=== PATIENT | male | born 1970 | race Caucasian/White ===

== ENCOUNTER 2025-06-26 21:42 | Emergency (ER) | payer OTHER, SELFPAY ==
--- NOTE | 2025-06-26 | ECG_ITS ---
Test Reason : FALL Blood Pressure : */* mmHG Vent. Rate : 74 BPM Atrial Rate : 74 BPM P-R Int : 132 ms QRS Dur : 100 ms QT Int : 454 ms P-R-T Axes : 66 -44 48 degrees QTcB Int : 503 ms Normal sinus rhythm Left axis deviation Prolonged QT Abnormal ECG No previous ECGs available Referred By: Generic ED Physician Electronically Signed By: GERALD CASSIDY MD
--- NOTE | ~2025-06-26 | CT_ITS ---
CLINICAL HISTORY: fall with head strike --- Additional Notes or Special Instructions: hx hemorrhagic cva recently CT head without contrast Comparison: None provided Findings: There is generalized cerebral and cerebellar atrophy. This is greater than expected for a patient of this age. The size and shape of the ventricular system is within normal limits for this degree of atrophy. Hpos-en-nrlersnq areas of low-attenuation are identified within the periventricular and deep white matter. Yang-white differentiation is preserved. No midline shift or mass effect. No intracranial hemorrhage. No calvarial fractures. Mild soft tissue swelling of the right posterior parietal scalp. IMPRESSION: 1. Mild right posterior parietal scalp contusion without fracture or intracranial hemorrhage. 2. Atrophy greater than expected for age. This document has been electronically signed by: Beto Whitney MD on 06/27/2025 01:16:00
--- NOTE | ~2025-06-26 | CT_ITS ---
CLINICAL HISTORY: fall with head strike --- Additional Notes or Special Instructions: hx hemorrhagic cva recently CT cervical spine without contrast Comparison: None provided Findings: Bony alignment of the cervical vertebral bodies is anatomic. No acute fracture. No prevertebral soft tissue swelling. Aejq-ia-hnnextcd degenerative disc disease at C5-6. Bony central canal is patent. No enlarged lymph nodes. Upper airway is patent. No apical infiltrate or apical pneumothorax. Small left pleural effusion versus mild posterior pleural thickening. IMPRESSION: No acute fracture. This document has been electronically signed by: Beto Whitney MD on 06/27/2025 01:15:38
[2025-06-26 21:49] VITALS: BP 114/81; PULSE 83; O2SAT 99; BMI 20.3
[2025-06-26 22:01] VITALS: BP 108/71; PULSE 80; RESP 16; O2SAT 100
[2025-06-26 23:30] LABS: Hematocrit 33.4 % (42.0-52.0); Hemoglobin 11.9 g/dl (14.0-18.0); Imm Gran Abs Auto 0.05 X10*3/uL (0.00-0.03); Imm Gran Pct Auto 0.8 % (0.0-0.4); Lymphocytes Absolute Auto 2.3 X10*3/uL (1.2-4.9); Mean Corpuscular HGB Conc 35.6 g/dl (31.0-36.0); Mean Corpuscular Hemoglobin 42.3 pg (27.0-33.0); NRBC Abs Auto 0.000 X10*3/uL (0.0-0.012); NRBC Pct Auto 0.0 /100WBC (0.0-0.2); PLT CLUMP 1; Red Blood Count 2.81 X10*6/uL (4.60-5.80); SCAN SMEAR FLAG 1
[2025-06-26 23:33] LABS: Anion Gap 19 (12-20); Blood Urea Nitrogen 5 mg/dL (9-16); Calcium 8.0 mg/dL (8.4-10.2); Carbon Dioxide 21 mmol/L (22-29); Chloride 100 mmol/L (96-108); Creatinine Clr Calc Pharmacy 140.5; Estimated Glomerular Filt Rate > 60; Potassium 2.6 mmol/L (3.3-5.1); Sodium 137 mmol/L (135-145)
[2025-06-26 23:48] LABS: Magnesium 2.1 mg/dL (1.6-2.6)
[2025-06-26 23:52] LABS: Mean Corpuscular Volume 118.9 fL (80.0-98.0); Platelet Count 116 X10*3/uL (160-400); White Blood Count 6.5 X10*3/uL (4.8-10.8)
[2025-06-26 23:53] LABS: MANUAL DIFF FLAG SCAN
--- NOTE | 2025-06-27 00:51 | ED_ITS ---
HPI - Alcohol General Chief Complaint: ETOH/Substance Use Stated Complaint: Fall/ETOH C-Collar Time Seen by Provider: 06/27/25 00:44 Source: patient and EMS Mode of arrival: ambulatory Limitations: no limitations History of Present Illness ED Provider: HPI narrative: 54-year-old male with a history of alcohol use disorder states was walking his dog, and dog pulled him he lost his balance and fell onto concrete wall, states that last month he was at [facility] after multiple falls while he was intoxicated he had small brain bleed as he states, he states his tetanus is up-to-date, and he otherwise has no other complaints denies chest pain palpitations nausea or vomiting. He states I feel like a million bucks Related Data Previous Rx's ?Medication ?Instructions ?Recorded potassium chloride 20 mEq 20 meq PO BID 10 days #20 ta bs 06/27/25 tablet,extended release (K-Tab) vitamin B complex 1 tab PO DAILY #30 tabs 06/06 01/27 Allergies Allergy/AdvReac Type Severity Reaction Status Date / Time No Known Allergies Allergy Verified 06/26/25 21:53 Review of Systems 2 Constitutional: Constitutional: Reports as per [facility] Social History Social History Alcohol intake: current Alcohol intake frequency: 0-2 drinks per day Smoked in Last 30 Days: Yes Use of substances other than those prescribed or required for medical reasons: No Physical Exam ED Vital Signs: Vital Signs - 24 hr 06/26/25 22:01 Pulse Rate 80 Respiratory Rate 16 Blood Pressure 108/71 Pulse Oximetry 100 Oxygen Delivery Method Room Air BMI result Body Mass Index 20.3 Const Other: * Gen: ?Cachectic, looks older than stated age * HEENT: No scleral icterus * Neck: Cervical collar in place * CV: RRR, no obvious murmurs appreciated * Resp: ?No wheezing rales rhonchi no stridor moving air well * Abd: ?Bowel sounds are present, no tenderness no rebound no rigidity * MSK: FROM, strength 5/5 all extremities * Skin: Superficial abrasions and bruising from prior injuries and D2 foreskin quality, acute abrasion to the top of the scalp, to his mid back and to his right elbow, no lacerations requiring repair * Neuro: ?Alert and oriented x3 with alcohol on breath, moving upper and lower extremities symmetrically, no obvious facial asymmetry noted Medical Decision Making Medical Decision Making MDM Narrative: Patient is presenting with falling this is a mechanical fall in the setting of alcohol intoxication, she does have alcohol on breath but he is fairly coherent, and clearly does not want to be in the emergency department, with that said all his blood work revealed hypokalemia without EKG changes such as you waves to necessitate emergent replacement, we will replace with oral meds that have excellent bed availability, he also has microcytic anemia likely nutritional, we will start him on vitamin you complexes, if CT of the head and neck is unremarkable, anticipating discharge in the care of a family member he states he is able to call. Differential Diagnosis Differential Diagnoses: The differential diagnosis associated with the presentation includes (Head injury, neck injury, anemia, hypomagnesemia, hypokalemia, dehydration, failure to thrive) Admission/Observation Consideration of admission/observation: Escalation of care including admission/observation considered 2022 Emergency Medicine Coding Guide from [email or web address] on 06/27/2025 All calculations should be rechecked by clinician prior to use RESULT SUMMARY: 5 Estimated Level of Service Problems: High (5) Risk: High (5) Data: Extensive (5) NARRATIVE MDM: This patient's problem complexity is High as patient: may have an acute or chronic illness/injury posing a threat to life or body function. This patient's risk is High due to: overall presentation requiring evaluation for a potentially High-risk process. This patient's data complexity is Extensive due to: -multiple tests ordered/reviewed -external notes reviewed -independent interpretation of imaging or EKG INPUTS: Number and Complexity ?> 2 = 5: illness/injury w/life or body threat (b) Risk level ?> 4 = High Tests ordered ?> 3 = >= Tests results reviewed (excluding labs) ?> 2 = 2 Prior external notes reviewed ?> 1 = 1 Assessment requiring and independent historian ?> 0 = No Independent interpretation of tests ?> 1 = Yes Discussed management/test interpretation w/external professional ?> 0 = No Lab Data [facility] Lab Attestation statement: I reviewed the patient's lab results. 06/26/25 22:57 06/26/25 22:57 Labs: Lab Results 06/26/25 Range/Units 22:57 WBC 6.5 (4.8-10.8) X10*3/uL RBC 2.81 L (4.60-5.80) X10*6/uL Hgb 11.9 L (14.0-18.0) g/dl Hct 33.4 L (42.0-52.0) % MCV 118.9 H (80.0-98.0) fL MCH 42.3 H (27.0-33.0) pg MCHC 35.6 (31.0-36.0) g/dl RDW 16.5 H (11.0-16.0) % Plt Count 116 L (160-400) X10*3/uL MPV 11.1 (9.4-12.4) fL Immature Gran % (Auto) 0.8 H (0.0-0.4) % Neut % (Auto) 50.5 (45-73) % Lymph % (Auto) 35.6 (20-40) % [place] % (Auto) 11.3 H (2-11) % Eos % (Auto) 1.2 (0-4) % Baso % (Auto) 0.6 (0-2) % Lymph # (Auto) 2.3 (1.2-4.9) X10*3/uL [place] # (Auto) 0.7 (0.1-1.2) X10*3/uL Eos # (Auto) 0.1 (0.0-0.4) X10*3/uL Baso # (Auto) 0.0 (0.0-0.2) X10*3/uL Abs Immat Gran (auto) 0.05 H (0.00-0.03) X10*3/uL Absolute Neuts (auto) 3.3 (2.0-8.3) x10*3/uL Absolute Nucleated RBC 0.000 (0.0-0.012) X10*3/uL Nucleated RBC % (auto) 0.0 (0.0-0.2) /100WBC Smear Tech's Comments VERIFIED Sodium 137 (135-145) mmol/L Potassium 2.6 L* (3.3-5.1) mmol/L Chloride 100 (96-108) mmol/L Carbon Dioxide 21 L (22-29) mmol/L Anion Gap 19 (12-20) BUN 5 L (9-16) mg/dL Creatinine 0.52 (0.5-1.4) mg/dL Estim Creat Clear Calc 140.5 Estimated GFR > 60 Random Glucose 81 (60-115) mg/dL Calcium 8.0 L (8.4-10.2) mg/dL Magnesium 2.1 (1.6-2.6) mg/dL Ethyl Alcohol 224 mg/dL Independent Interpretation I performed an independent interpretation of an: EKG (74 beats per minute, there was no T-wave flattening, or ST segment depression or prominent U-waves, slightly prolonged QTC at 503) Medications Administered Discontinued Medications Generic Name Dose Route Start Last Admin Trade Name Freq PRN Reason Stop Dose Admin Potassium Chloride 40 meq 06/27/25 00:50 06/27/25 00:56 Potassium Chloride Packet 20 Meq Packet PO 06/27/25 00:51 40 meq ONCE ONE Administration Potassium Chloride 10 meq 06/27/25 00:54 06/27/25 00:58 Potassium Chloride Er 10 Meq Tablet.Er PO 06/27/25 00:55 10 meq ONCE ONE Administration Discharge Plan Discharge Clinical Impression: Alcoholic intoxication, Abrasion of scalp, Abrasion of elbow, Acute hypokalemia, Anemia, macrocytic, nutritional Patient Disposition: Home, Self-Care Instructions: Hypokalemia (ED), Abuse of Alcohol (DC) Additional Instructions: Evaluated after a fall in the setting of alcohol use, you have had multiple falls in the past, he has sustained abrasions to your back, top of the head, your right elbow, I recommend detox as you alcohol use is impact in your health, I am also recommending vitamin-B complex for your anemia associated with poor diet Prescriptions: New potassium chloride [K-Tab] 20 mEq tablet extended release 20 meq PO BID 10 Days Qty: 20 0RF vitamin B complex Tablet 1 tab PO DAILY Qty: 30 0RF
[2025-06-27] MEDS: Potassium Chloride Packet 20 MEQ PACKET 40 MEQ PO (00:56)
[2025-06-27] MEDS: Potassium Chloride ER 10 MEQ TABLET.ER PO (00:58)
[2025-06-27 01:37] VITALS: BP 101/72; PULSE 83; RESP 16; TEMP 36.7; O2SAT 97
[2025-06-27 01:56] VITALS: BP 101/72; PULSE 83; RESP 16; TEMP 36.7; O2SAT 97
== END 2025-06-27 01:56 | disposition home or self-care (01) ==
LOC: HO.ED 06-27 01:48
PROVIDERS: Emergency Provider Emergency Medicine
DX: S00.01XA Abrasion of scalp, initial encounter (principal); S50.311A Abrasion of right elbow, initial encounter; E87.6 Hypokalemia; D64.9 Anemia, unspecified; F10.129 Alcohol abuse with intoxication, unspecified; R94.31 Abnormal electrocardiogram [ECG] [EKG]; Y93.K1 Activity, walking an animal; Y93.9 Activity, unspecified; Y92.480 Sidewalk as the place of occurrence of the external cause; Y99.8 Other external cause status; Y90.7 Blood alcohol level of 200-239 mg/100 ml; Z51.81 Encounter for therapeutic drug level monitoring; Z79.899 Other long term (current) drug therapy
CPT/HCPCS: 36415; 70450; 72125; 80048; 80307; 83735; 85025; 93005; 99284

== ENCOUNTER → 2025-06-26 22:34 | Outpatient (BNV) | payer OTHER, SELFPAY | PROVIDERS: Emergency Provider Emergency Medicine; Visit Provider Internal Medicine Cardiovascular Disease | DX: R94.31 Abnormal electrocardiogram [ECG] [EKG] (principal); W19.XXXA Unspecified fall, initial encounter | CPT/HCPCS: 93010 ==

== ENCOUNTER → 2025-06-27 23:17 | Outpatient (BNV) | payer OTHER, SELFPAY | PROVIDERS: Emergency Provider Emergency Medicine; Visit Provider Radiology Diagnostic Radiology | DX: S09.90XA Unspecified injury of head, initial encounter (principal); W19.XXXA Unspecified fall, initial encounter | CPT/HCPCS: 70450; 72125 ==

== ENCOUNTER 2025-09-22 03:29 | Emergency (ER) | payer OTHER, SELFPAY ==
--- NOTE | ~2025-09-22 | CT_ITS ---
CLINICAL HISTORY: Fall; Head Strike; LOC CT of the head without intravenous contrast Comparison: CT/SR - CT HEAD/BRAIN WO IV CON - 06/27/25 00:17 EDT Findings: The ventricles and sulci are prominent, consistent with generalized cerebral parenchymal volume loss. The ventricles are symmetric and the basilar cisterns are intact. Mild periventricular, deep and subcortical white matter hypodensities are nonspecific but statistically reflect the sequela of chronic small vessel ischemic change. No intracranial hemorrhage, extra-axial fluid collection, midline shift or mass-effect is evident. No evidence of acute large vessel or territorial ischemia. Brainstem and cerebellum unremarkable. Vascular calcifications indicate intracranial atherosclerosis. The imaged portion of the paranasal sinuses demonstrated bilateral maxillary sinusitis. No mastoid effusions are demonstrated. The orbital contents are unremarkable. Calvarium is intact. Impression: 1. No CT evidence of acute intracranial abnormality. 2. Cerebral volume loss, intracranial atherosclerotic disease and mild sequela of chronic small vessel ischemic disease. This document has been electronically signed by: Kishor Villarreal MD on 09/22/2025 05:25:49
--- NOTE | ~2025-09-22 | CT_ITS ---
CLINICAL HISTORY: Fall; Head Stike CT cervical spine without intravenous contrast Comparison: CT/SR - CT CERVICAL SPINE WO IV CON - 06/27/25 00:17 EDT Findings: Craniocervical junction: No occipital condylar fractures. No evidence of atlantooccipital dissociation. The anterior and posterior arch and lateral masses of C1 are intact. Odontoid and atlanto-dental interval intact. The pars interarticularis of C2 is intact. There is normal vertebral body heights with no evidence of compression fracture. There is normal cervical alignment. No locked or perched facets. No spinous process fractures. Lordotic curvature is preserved. The retropharyngeal soft tissues are not widened. Segmental analysis as below (MR is more accurate in the evaluation of disc herniation and central canal pathology): C2-C3: No herniation or stenosis. C3-C4: No herniation or stenosis. C4-C5: No herniation or stenosis. C5-C6: No herniation or stenosis. C6-C7: No herniation or stenosis. C7-T1: No herniation or stenosis. The bones are without evidence of lytic or blastic lesion. Lung apices are unremarkable. Impression: 1. Negative CT cervical spine for acute process. This document has been electronically signed by: Kishor Villarreal MD on 09/22/2025 05:32:04
[2025-09-22 03:33] VITALS: BP 122/75; BP 158/92; PULSE 81; PULSE 84; RESP 20; TEMP 36.4; O2SAT 100; O2SAT 99; BMI 23.6
--- NOTE | 2025-09-22 04:43 | ED_ITS ---
HPI - Fall General Chief Complaint: Fall Stated Complaint: unwitnessed fall, LOC, LAC on head Time Seen by Provider: 09/22/25 04:47 Source: patient Mode of arrival: ambulatory Limitations: no limitations History of Present Illness ED Provider: Tiago DOWNEY HPI Narrative: The patient is a 55-year-old male presenting to the ED via EMS after he suffered a mechanical fall outside. The patient admits to daily alcohol use, including this evening. Patient reports he was using his walker outside when his hand slipped off and he fell forward striking the right parietal region on unknown object resulting in a laceration. The patient does not take blood thinners, patient denies loss of consciousness at the time of the injury, however EMS reports hotel staff found the patient unconscious and activated EMS. In the ED patient is verbally oppositional but ultimately able to be redirected. Related Data Previous Rx's ?Medication ?Instructions ?Recorded potassium chloride 20 mEq 20 meq PO BID 10 days #20 ta bs 06/27/25 tablet,extended release (K-Tab) vitamin B complex 1 tab PO DAILY #30 tabs 06/06 01/27 Allergies Allergy/AdvReac Type Severity Reaction Status Date / Time No Known Allergies Allergy Verified 09/22/25 03:38 Review of Systems 2 Review of Systems: Yes all other systems are reviewed and are negative PMFSH Social History Social History Alcohol intake: current Alcohol intake frequency: 3 or more drinks per day Alcohol type: beer and hard liquor Smoked in Last 30 Days: Yes Use of substances other than those prescribed or required for medical reasons: No Advance Directives: No Advance Directives Information Provided: Yes Physical Exam 2 Vital Signs: Vital Signs: Last Vital Signs Temp 98.5 F 09/22/25 06:27 Pulse 83 09/22/25 06:27 Resp 18 09/22/25 06:27 BP 99/78 09/22/25 06:27 Pulse Ox 94 09/22/25 06:27 O2 Del Method Room Air 09/22/25 06:27 BMI result Body Mass Index 23.6 CONSTITUTIONAL: The patient appears clinically intoxicated, odor of EtOH metabolites on breath, otherwise non-toxic, well nourished and in no acute distress. Vital signs as documented. HEAD: There is a 3 cm linear laceration noted to the right parietal area. Head is otherwise Atraumatic, normocephalic. EYES: EOMs grossly intact, pupils equal, conjunctiva clear, no exudate. ENT: Nares patent, no discharge. Airway patent, no audible stridor, visible mucosa is pink and moist without noted lesions. NECK: Trachea is midline, no obvious masses or gross abnormalities. CHEST: Symmetric movement, normal appearance. LUNGS: LS present and CTAB, no w/r/r. Non-labored work of breathing. CARDIAC: Regular Rhythm, S1/S2 appreciated, no murmurs, rubs or gallops. ABDOMEN: Abdomen soft and non-tender x4 quadrants, no palpable masses or organomegaly. : Deferred. EXTREMITIES: Normal tone, moves all extremities spontaneously without reported pain. No obvious acute injury or deformity noted. NEURO: Alert and oriented x3, CN II-XII appear grossly intact. Cerebellar Functioning grossly intact. No obvious sensory or motor deficits. Speech clear and appropriate. PSYCH: Oppositional affect, appropriate eye contact, fluid speech, with appropriate response to questioning. No reported suicidality or homicidality. SKIN: Warm, dry, color appropriate, normal turgor. No rashes noted. Course Course Course Narrative: 11:32 AM 09/22/2025 (DUC CORONA): Physician observation ended, he is clinically sober, he has a steady gait, he declines all SUDE eval and wants to go home Medications Administered Discontinued Medications Generic Name Dose Route Start Last Admin Trade Name Freq PRN Reason Stop Dose Admin Sodium Chloride 1,000 mls @ 999 mls/hr 09/22/25 05:15 09/22/25 05:24 Ns IV 09/22/25 06:15 Not Given .Q1H1M STEVE Lidocaine HCl 5 ml 09/22/25 05:27 09/22/25 05:29 Lidocaine Hcl 1 % Mpf 5 Ml Vial INFILTRATI 09/22/25 05:28 5 ml ONCE ONE Administration Lidocaine/Epinephrine 5 ml 09/22/25 05:08 09/22/25 05:25 Lidocaine Hcl 1%/Epi 1:100,000 20 Ml Vial INFILTRATI 09/22/25 05:09 Not Given ONCE ONE Procedures Laceration Laceration 1: Site: scalp Side (If applicable): right Size (cm): 3 Description: linear and clean Depth: simple, single layer Local Anesthetic: lidocaine 1% Amount of anesthesia used (mL): 5 Pre-repair: wound explored, irrigated extensively and deep structures intact Skin layer closed with: thony Number of closing items:: 6 Technique: thony Medical Decision Making Medical Decision Making [facility] Narrative: 5:09 AM 09/22/2025 (Raine DOWNEY): The patient is a 55-year-old male presenting to the ED via EMS after he suffered a mechanical fall outside. The patient admits to daily alcohol use, including this evening. Patient reports he was using his walker outside when his hand slipped off and he fell forward striking the right parietal region on unknown object resulting in a laceration. The patient does not take blood thinners, patient denies loss of consciousness at the time of the injury, however EMS reports hotel staff found the patient unconscious and activated EMS. In the ED patient is verbally oppositional but ultimately able to be redirected. The patient appears clinically intoxicated, with a odor of EtOH metabolites on breath, ability to provide a reliable HPI or exam is questionable. Head exam demonstrates a 3 cm laceration of the right parietal region. Patient will be sent for CT head and neck, as well as laboratory evaluation, and we will be treated with IV fluids. The patient's laceration will be repaired with thony. The patient reports he does not believe he has anyone to come pick him up from the ED, we will obtain an ethanol level to determine when the patient is sober enough to be discharged to his own care. 5:30 AM 09/22/2025 (Raine DOWNEY): The patient's laceration was repaired with thony, patient tolerated the procedure well. The patient's CT head shows no evidence of acute intracranial abnormality, there is however cerebral volume loss with intracranial atherosclerotic disease and chronic small-vessel ischemic disease. Cervical spine CT and laboratory evaluation pending. 6:06 AM 09/22/2025 (Raine DOWNEY): The patient's cervical spine CT is negative for acute fracture. The patient's lab evaluation demonstrates hypokalemia, anemia of chronic disease, and alcohol level of 369. The patient is reportedly calling for a ride from a family member, if a sober ride presents itself patient will be discharged to the family members care, otherwise patient is not safe to be discharged to his own care and will require observation until clinical sobriety. Admission/Observation Consideration of admission/observation: Escalation of care including admission/observation considered Lab Data MDM Lab Attestation statement: I reviewed the patient's lab results. 09/22/25 05:31 09/22/25 05:31 Labs: Lab Results 09/22/25 Range/Units 05:31 WBC 4.9 (4.8-10.8) X10*3/uL RBC 3.16 L (4.60-5.80) X10*6/uL Hgb 12.5 L (14.0-18.0) g/dl Hct 35.5 L (42.0-52.0) % MCV 112.3 H (80.0-98.0) fL MCH 39.6 H (27.0-33.0) pg MCHC 35.2 (31.0-36.0) g/dl RDW 13.4 (11.0-16.0) % Plt Count 117 L (160-400) X10*3/uL MPV 9.4 (9.4-12.4) fL Immature Gran % (Auto) 0.2 (0.0-0.4) % Neut % (Auto) 42.9 L (45-73) % Lymph % (Auto) 45.0 H (20-40) % [place] % (Auto) 9.1 (2-11) % Eos % (Auto) 2.0 (0-4) % Baso % (Auto) 0.8 (0-2) % Lymph # (Auto) 2.2 (1.2-4.9) X10*3/uL [place] # (Auto) 0.5 (0.1-1.2) X10*3/uL Eos # (Auto) 0.1 (0.0-0.4) X10*3/uL Baso # (Auto) 0.0 (0.0-0.2) X10*3/uL Abs Immat Gran (auto) 0.01 (0.00-0.03) X10*3/uL Absolute Neuts (auto) 2.1 (2.0-8.3) x10*3/uL Absolute Nucleated RBC 0.000 (0.0-0.012) X10*3/uL Nucleated RBC % (auto) 0.0 (0.0-0.2) /100WBC Sodium 144 (135-145) mmol/L Potassium 3.1 L (3.3-5.1) mmol/L Chloride 108 (96-108) mmol/L Carbon Dioxide 25 (22-29) mmol/L Anion Gap 14 (12-20) BUN 6 L (9-16) mg/dL Creatinine 0.55 (0.5-1.4) mg/dL Estim Creat Clear Calc 153.5 Estimated GFR > 60 Random Glucose 91 (60-115) mg/dL Calcium 8.2 L (8.4-10.2) mg/dL Total Bilirubin 0.3 (0.0-1.0) mg/dL AST 45 H (5-37) U/L ALT 17 (0-40) U/L Alkaline Phosphatase 113 (39-117) U/L Total Protein 6.3 L (6.5-8.0) g/dL Albumin 3.6 (3.5-5.0) g/dL Ethyl Alcohol 369 H* mg/dL Radiology Impression Discussion of test interpretation with radiology: I have reviewed the radiologist's reading. Radiologist Impression: CT of the head without intravenous contrast Comparison: CT/SR - CT HEAD/BRAIN WO IV CON - 06/27/25 00:17 EDT Findings: The ventricles and sulci are prominent, consistent with generalized cerebral parenchymal volume loss. The ventricles are symmetric and the basilar cisterns are intact. Mild periventricular, deep and subcortical white matter hypodensities are nonspecific but statistically reflect the sequela of chronic small vessel ischemic change. No intracranial hemorrhage, extra-axial fluid collection, midline shift or mass-effect is evident. No evidence of acute large vessel or territorial ischemia. Brainstem and cerebellum unremarkable. Vascular calcifications indicate intracranial atherosclerosis. The imaged portion of the paranasal sinuses demonstrated bilateral maxillary sinusitis. No mastoid effusions are demonstrated. The orbital contents are unremarkable. Calvarium is intact. Impression: 1. No CT evidence of acute intracranial abnormality. 2. Cerebral volume loss, intracranial atherosclerotic disease and mild sequela of chronic small vessel ischemic disease. This document has been electronically signed by: Kishor Villarreal MD on 09/22/2025 05:25:49 CT cervical spine without intravenous contrast Comparison: CT/SR - CT CERVICAL SPINE WO IV CON - 06/27/25 00:17 EDT Findings: Craniocervical junction: No occipital condylar fractures. No evidence of atlantooccipital dissociation. The anterior and posterior arch and lateral masses of C1 are intact. Odontoid and atlanto-dental interval intact. The pars interarticularis of C2 is intact. There is normal vertebral body heights with no evidence of compression fracture. There is normal cervical alignment. No locked or perched facets. No spinous process fractures. Lordotic curvature is preserved. The retropharyngeal soft tissues are not widened. Segmental analysis as below (MR is more accurate in the evaluation of disc herniation and central canal pathology): C2-C3: No herniation or stenosis. C3-C4: No herniation or stenosis. C4-C5: No herniation or stenosis. C5-C6: No herniation or stenosis. C6-C7: No herniation or stenosis. C7-T1: No herniation or stenosis. The bones are without evidence of lytic or blastic lesion. Lung apices are unremarkable. Impression: 1. Negative CT cervical spine for acute process. This document has been electronically signed by: Kishor Villarreal MD on 09/22/2025 05:32:04 Discharge Plan Discharge Clinical Impression: Laceration of scalp Qualifiers: Encounter type: initial encounter Qualified Code(s): S01.01XA - Laceration without foreign body of scalp, initial encounter Fall Qualifiers: Encounter type: initial encounter Qualified Code(s): W19.XXXA - Unspecified fall, initial encounter Alcohol intoxication Qualifiers: Complication of substance-induced condition: uncomplicated Qualified Code(s): F 10.920 - Alcohol use, unspecified with intoxication, uncomplicated Patient Disposition: Home, Self-Care Instructions: Laceration (ED), Alcohol Intoxication (ED), Staple Care (ED) Additional Instructions: Thank you for choosing [facility]'s Emergency Department for your care today. Thankfully your CT of your head and neck today shows no evidence of acute fracture or intracranial injury from your fall. At this time there is no indication for admission to the hospital or continued ED observation, and it is safe to discharge you home. Your scalp laceration was repaired with nonabsorbable thony which will need to be removed in 5-7 days. Please return to the emergency department or follow-up with your primary care provider for removal of the thony. Please apply bacitracin to the laceration twice daily for the first 2-3 days. Then please keep the area clean and dry, but uncovered and exposed to the air to allow the laceration to heal. While it is perfectly acceptable to allow water to run over the thony while showering, please do not swim, or submerge the laceration in standing water until the thony are removed. Please stay well hydrated and get plenty of rest. Your alcohol consumption likely contributed to your fall today. Please avoid drinking alcohol in excess as this will make you more dehydrated and delay your healing. Additionally excessive alcohol consumption can put you at an increased risk for otherwise avoidable injury. Please use all personal and community- based resources available to attempt becoming sober from alcohol. If you would like to cut down or stop your alcohol use please consider calling our outpatient Addiction Treatment office:? [facility] (M-F [id number]) [address] [place] [address] [address] You have also been given a list of treatment providers in the area that can assist as well.? If you experience seizures, vomiting blood, black stools, falls, severe headache, chest pain, fevers, trouble breathing, hallucinations or any other concerns you need to call 911 or seek immediate care. Please stay hydrated. Please return to the emergency department if you develop any uncontrollable bleeding, re-opening of your wound, redness advancing >1-2 cm away from your wound, or white milky discharge from your wound. Please follow up with your primary care physician for re-evaluation, additional management of your symptoms, and continued preventative care. If you do not have a primary care physician, please call the [facility] at [phone] to establish a new primary care physician. While waiting to establish your new primary care physician, you can call our Walk-in Care Clinic at [phone] for non-emergency needs. Prescriptions: No Action potassium chloride [K-Tab] 20 mEq tablet extended release 20 meq PO BID 10 Days Qty: 20 0RF vitamin B complex Tablet 1 tab PO DAILY Qty: 30 0RF Print Language: Ukrainian
[2025-09-22] MEDS: Lidocaine HCl 1 % MPF 5 ML VIAL INFILTRATI (05:29)
[2025-09-22 05:37] LABS: MANUAL DIFF FLAG NO
[2025-09-22 05:40] LABS: Hematocrit 35.5 % (42.0-52.0); Hemoglobin 12.5 g/dl (14.0-18.0); Imm Gran Abs Auto 0.01 X10*3/uL (0.00-0.03); Imm Gran Pct Auto 0.2 % (0.0-0.4); Lymphocytes Absolute Auto 2.2 X10*3/uL (1.2-4.9); Mean Corpuscular HGB Conc 35.2 g/dl (31.0-36.0); Mean Corpuscular Hemoglobin 39.6 pg (27.0-33.0); NRBC Abs Auto 0.000 X10*3/uL (0.0-0.012); NRBC Pct Auto 0.0 /100WBC (0.0-0.2); Platelet Count 117 X10*3/uL (160-400); Red Blood Count 3.16 X10*6/uL (4.60-5.80); White Blood Count 4.9 X10*3/uL (4.8-10.8)
[2025-09-22 05:41] LABS: Mean Corpuscular Volume 112.3 fL (80.0-98.0)
[2025-09-22 05:53] LABS: Alanine Aminotransferase 17 U/L (0-40); Albumin Level 3.6 g/dL (3.5-5.0); Alkaline Phosphatase 113 U/L (39-117); Anion Gap 14 (12-20); Aspartate Amino Transferase 45 U/L (5-37); Blood Urea Nitrogen 6 mg/dL (9-16); Calcium 8.2 mg/dL (8.4-10.2); Carbon Dioxide 25 mmol/L (22-29); Chloride 108 mmol/L (96-108); Creatinine Clr Calc Pharmacy 153.5; Estimated Glomerular Filt Rate > 60; Potassium 3.1 mmol/L (3.3-5.1); Sodium 144 mmol/L (135-145); Total Protein 6.3 g/dL (6.5-8.0)
[2025-09-22 06:27] VITALS: BP 99/78; PULSE 83; RESP 18; TEMP 36.9; O2SAT 94
--- NOTE | 2025-09-22 08:41 | PC.NURSE ---
Pt slurring speech, requesting to be discharged. Made aware (again) that he needs a sober ride to come and get him or to wait to be sober to take lyft/uber.
[2025-09-22 12:23] VITALS: BP 99/78; PULSE 83; RESP 18; TEMP 36.9; O2SAT 94
== END 2025-09-22 12:24 | disposition home or self-care (01) ==
PROVIDERS: Physician Assistant; Emergency Provider Emergency Medicine
DX: S01.01XA Laceration without foreign body of scalp, initial encounter (principal); F10.920 Alcohol use, unspecified with intoxication, uncomplicated; Y90.8 Blood alcohol level of 240 mg/100 ml or more; W01.10XA Fall on same level from slipping, tripping and stumbling with subsequent striking against unspecified object, initial encounter; Y93.9 Activity, unspecified; Y92.89 Other specified places as the place of occurrence of the external cause; Y99.9 Unspecified external cause status
CPT/HCPCS: 12002; 36415; 70450; 72125; 80053; 80307; 85025; 99284; J2003

== ENCOUNTER → 2025-09-22 04:43 | Outpatient (BNV) | payer OTHER, SELFPAY | PROVIDERS: Emergency Provider Emergency Medicine; Visit Provider Radiology Diagnostic Radiology | DX: S06.9X9A Unspecified intracranial injury with loss of consciousness of unspecified duration, initial encounter (principal); Z04.3 Encounter for examination and observation following other accident | CPT/HCPCS: 70450; 72125 ==